=== PATIENT | male | born 1995 | race Hispanic/Latino ===

== ENCOUNTER 2020-12-19 18:40 | Emergency (ER) | payer BC, SELFPAY ==
--- NOTE | ~2020-12-19 | XR_ITS ---
EXAMINATION: XR elbow LT min 3V DATE: 12/19/2020 19:06 INDICATION: Generalized left elbow pain post golfing injury TECHNIQUE: Anteroposterior, two oblique and lateral views of the left elbow were obtained. COMPARISON: None. FINDINGS: Alignment is normal. No fracture. Joint spaces are normal. No left elbow joint effusion. Soft tissue swelling with subcutaneous edema centered about the medial epicondyle. IMPRESSION: 1. No left elbow joint effusion or osseous abnormality. Reviewed, dictated and finalized at location A.
[2020-12-19 18:50] VITALS: BP 141/97; PULSE 95; RESP 18; TEMP 36.6; O2SAT 97
--- NOTE | 2020-12-19 19:25 | ED.GENADULT ---
HPI - General Adult General Chief complaint: Extremity Injury, Upper Stated complaint: left elbow injury Time Seen by Provider: 12/19/20 19:04 Source: RN notes reviewed History of Present Illness HPI narrative: Patient presents to emergency department from home for left elbow pain. Patient states pain began today while he was golfing. States he swung a golf club and had immediate pain in his left medial elbow. Since then he has noted pain with pain with extension of the elbow he denies any direct trauma he denies any other injury denies any pain to the wrist or the shoulder states did not take a medication for the symptoms. Review of Systems Review of Systems: Narrative: Gen.: Denies fevers or chills Musculoskeletal: See HPI Neuro: Denies numbness, tingling, weakness Skin: Denies rash Endo: Denies DM PMFSH Past Medical History Medical History (Updated 12/19/20 @ 19:29 by Bladimir Webster DO) Patient denies significant medical history Social History Social History (Updated 12/19/20 @ 19:26 by Bladimir Webster DO) Smoking status: Never smoker Exam Narrative: Exam Narrative: APPEARANCE: No acute distress, nontoxic, resting in bed Eyes: EOMI HEENT: Normocephalic, atraumatic, RESPIRATORY: No respiratory distress MUSCULOSKELETAl: Tender to palpation of the left medial elbow with swelling present no tenderness over the lateral epicondyle or the olecranon process pain with full extension of the elbow and flexion greater than 90 degrees no tenderness of the left wrist or shoulder, radial pulse 2+, neurovascularly intact NEURO: Awake and alert. Following commands, speech normal, no focal deficits SKIN:: Warm, dry. Normal Color no rash or lesions Course Course Emergency Course: Discussed with patient results of workup and diagnosis. Discussed need for follow-up with primary care, proper use of medication, and reasons to return to the emergency department. Patient understands and agrees to current treatment plan Vital Signs Vital signs: Vital Signs Temperature 97.9 F 12/19/20 18:50 Pulse Rate 95 12/19/20 18:50 Respiratory Rate 18 12/19/20 18:50 Blood Pressure 141/97 H 12/19/20 18:50 Pulse Oximetry 97 12/19/20 18:50 Temperature 97.9 F 12/19/20 18:50 Pulse Rate 95 12/19/20 18:50 Respiratory Rate 18 12/19/20 18:50 Blood Pressure 141/97 H 12/19/20 18:50 Pulse Oximetry 97 12/19/20 18:50 Medical Decision Making Vital Signs Vital Signs: Vital Signs Temperature 97.9 F 12/19/20 18:50 Pulse Rate 95 12/19/20 18:50 Respiratory Rate 18 12/19/20 18:50 Blood Pressure 141/97 H 12/19/20 18:50 Pulse Oximetry 97 12/19/20 18:50 Temperature 97.9 F 12/19/20 18:50 Pulse Rate 95 12/19/20 18:50 Respiratory Rate 18 12/19/20 18:50 Blood Pressure 141/97 H 12/19/20 18:50 Pulse Oximetry 97 12/19/20 18:50 Imaging Data Radiologist's impression: ITS Impressions Elbow X-Ray 12/19/20 19:25 IMPRESSION: 1. No left elbow joint effusion or osseous abnormality. Discharge Plan Discharge Clinical Impression: Sprain of elbow, left Patient Disposition: Home, Self-Care Condition: Stable Instructions: Antibiotic Form, Elbow Sprain (ED) Additional Instructions: Return for increasing pain numbness or tingling in extremities or any other symptoms of concern Prescriptions: New ibuprofen [IBU] 600 mg tablet 600 mg PO Q6H PRN (Reason: pain) Qty: 20 RF: 0 Follow-up/Referrals: Solis Calderón MD [Physician] - (Follow-up in 2 to 3 days for further orthopedic treatment and evaluation) PHYSICIAN,BUTTON SEWER [Primary Care Provider] - Time of Disposition: 19:27
[2020-12-19] MEDS: IBUPROFEN 600 MG TABLET PO (19:31)
[2020-12-19 19:35] VITALS: BP 131/72; PULSE 80; RESP 16; O2SAT 99
== END 2020-12-19 19:35 | disposition home or self-care (01) ==
PROVIDERS: Emergency Provider Emergency Medicine
DX: S53.402A Unspecified sprain of left elbow, initial encounter (principal); X50.9XXA Other and unspecified overexertion or strenuous movements or postures, initial encounter; Y93.53 Activity, golf
CPT/HCPCS: 73080; 99283; A4565; A9270

== ENCOUNTER 2022-06-03 19:00 | Emergency (ER) | payer SELFPAY ==
[2022-06-03 19:16] VITALS: BP 127/94; PULSE 73; RESP 18; TEMP 36.4; O2SAT 100
--- NOTE | 2022-06-03 19:31 | ED.URI ---
HPI - URI/Sore Throat General Chief Complaint: Upper Respiratory Infection Stated Complaint: sore throat Time Seen by Provider: 06/03/22 19:31 Source: patient and RN notes reviewed Mode of arrival: ambulatory Limitations: no limitations History of Present Illness HPI Narrative: 26-year-old male presents to the [facility] with complaints of a sore throat. Patient states 2 weeks ago he started with some sinus issues, sore throat and fever. Continues to have a sore throat. Related Data Allergies Allergy/AdvReac Type Severity Reaction Status Date / Time No Known Allergies Allergy Verified 12/19/20 19:36 Review of Systems Review of Systems: All systems reviewed & are unremarkable except as noted in HPI and below Constitutional: Constitutional: Reports as per HPI, Denies chills and Reports fever(s) (2 weeks ago) Eyes: Eyes: Reports no additional eye complaints ENT: Reports as per HPI and Reports sore throat Cardiovascular: Cardiovascular: Reports no additional cardiovascular complaints Respiratory: Respiratory: Reports no additional respiratory complaints Gastrointestinal: Gastrointestinal: Reports no additional gastrointestinal complaints Musculoskeletal: Musculoskeletal: Reports no additional musculoskeletal complaints Integumentary/Breasts: Skin/Breast: Reports system reviewed and no additional complaints, except as docu Neurologic: Reports system reviewed and no additional complaints, except as documented Psychiatric: Psychiatric: Reports no additional psychiatric complaints Allergic/Immunologic: Allergic/Immunologic: Reports no additional allergic/immunologic complaints PMFSH Past Medical History Medical History (Updated 06/03/22 @ 19:38 by Vivian Ac APRN) Patient denies significant medical history Surgical History Surgical History (Updated 06/03/22 @ 19:38 by Vivian Ac APRN) No pertinent past surgical history Social History Social History Smoking status: Never smoker Comments At the time of my signature, I reviewed and agree with the nursing past medical, surgical, social, and family history. There is no relevant family history pertinent to the patient complaint. Exam Const: General: healthy appearing, no acute distress, alert and well nourished Nutritional Appearance: well nourished Orientation/consciousness: patient oriented x3 Limitations: no limitations HENMT: Head: normal to inspection Ears: external ears normal, TM's normal bilaterally and EAC's normal Face/Nose/Sinus: Normal external nose present and Normal nares present Face and sinus: normal facial exam Mouth: Yes Normal oral and palatal mucosa present, Yes lip normal and Yes moist mucous membranes Throat: posterior oropharynx normal, tonsils normal, uvula midline, postnasal drainage and no uvular edema Eyes: General: appearance normal, both eyes and all related structures Conjunctivae: conjunctivae normal Pupils: Equal, round and reactive pupils present Neck: Neck: normal visual inspection, no lymphadenopathy and no meningeal signs Chest: Chest palpation & inspection: normal inspection of the chest Resp: Effort & Inspection: normal respiratory effort and no use of accessory muscles Auscultation: clear to auscultation bilaterally, no crackles, no rales, no rhonchi and no wheezes Cardio: Rate: regular rate Rhythm: regular rhythm Skin: General skin exam: normal color Rashes: no rashes Wounds: no wounds Neuro: General: patient oriented x3, moves all extremities, no meningeal signs and no focal motor deficits Cranial nerves: Yes Equal, round and reactive pupils present Speech: normal speech Gait exam (Neuro): Normal gait present Extrem: General: normal to inspection, full ROM and capillary refill normal Psych: Appearance: grossly normal and well kempt Mental Status: mental status grossly normal Affect: normal affect Attitude: cooperative Thought content:
== END 2022-06-03 19:42 | disposition home or self-care (01) ==
PROVIDERS: Emergency Provider Nurse Practitioner
DX: R09.82 Postnasal drip (principal)
CPT/HCPCS: 87081; 87880; 99213; G0463